=== PATIENT | male | born 1970 | race Caucasian/White ===

== ENCOUNTER 2023-05-08 12:14 | Emergency (ER) | payer BC ==
[~2023-05-08] VITALS: Ht 175.3 cm; Wt 87.5 kg
[2023-05-08] MEDS ORDERED: OXYMETAZOLINE HCL 0.05% NAS 1 SPRAY BTL ONE (12:45)
[2023-05-08 13:55] VITALS: BP 146/95; PULSE 89; RESP 19; TEMP 97.6; O2SAT 100
== END 2023-05-08 13:56 | disposition home or self-care (01) ==
LOC: ER 12:24
DX: R04.0 Epistaxis (principal)
CPT/HCPCS: 99283

== ENCOUNTER → 2024-09-28 | Day surgery (SDC) | payer BC ==
[~2024-09-28] MED LIST: GLUCAGON FOR INJ 1 MG VIAL ONE; K2 PO; LIDOCAINE HCL 2% LOCAL INJ 5 ML SDV VIAL INJ ONE; MIDAZOLAM HCL 2 MG/2 ML VIAL ONE; PROPOFOL IV EMULSION 10 MG/ML 20 ML VIAL ONE; VITAMIN D3250 MC1 PO
[2024-09-28] MEDS: LACTATED RINGER'S 1,000 ML ONE (10:28)
[2024-09-28 11:33] VITALS: TEMP 97.9
[2024-09-28 12:00] VITALS: BP 131/87; PULSE 79; RESP 16; O2SAT 97
== END | disposition home or self-care (01) ==
LOC: OR 09:01
PROVIDERS: ATTEND Internal Medicine Gastroenterology
DX: Z12.11 Encounter for screening for malignant neoplasm of colon (principal); D12.3 Benign neoplasm of transverse colon; K57.30 Diverticulosis of large intestine without perforation or abscess without bleeding; K64.8 Other hemorrhoids; Z01.810 Encounter for preprocedural cardiovascular examination
CPT/HCPCS: 45385; 93005; J1610; J2003; J2250; J2704; J7121